=== PATIENT | female | born 1955 | race African-American/Black ===

== ENCOUNTER 2025-06-18 01:37 | Emergency (ER) | payer OTHER ==
[~2025-06-18] VITALS: Ht 160 cm; Wt 65.0 kg
[2025-06-18 01:44] VITALS: O2SAT 100
[2025-06-18 03:28] VITALS: BP 142/101; PULSE 116; RESP 16; TEMP 36.8; O2SAT 100
[2025-06-18] MEDS: ONDANSETRON HCL 4MG/2ML INJ IV ONE (04:10)
[2025-06-18 04:26] LABS: CREATININE 1.1 mg/dL (0.6-1.0)
[2025-06-18 04:27] LABS: UREA NITROGEN BLOOD 17.0 mg/dL (9-23)
== END 2025-06-18 05:15 | disposition home or self-care (01) ==
LOC: ER 01:37
DX: F12.90 Cannabis use, unspecified, uncomplicated (principal); R00.2 Palpitations; I48.91 Unspecified atrial fibrillation; Z88.5 Allergy status to narcotic agent
CPT/HCPCS: 36415; 80048; 93005; 99284